=== PATIENT | female | born 1995 | race Caucasian/White ===

== ENCOUNTER 2019-10-05 07:30 | Outpatient (CLI) | payer BC ==
--- NOTE | 2019-10-05 09:19 | ULT ---
Obstetric sonogram HISTORY: evaluation. Second trimester gestation. FINDINGS: Single intrauterine gestation in transverse presentation. Cervix is closed and 5.4 cm. Grad e 0 placenta is anterior. No evidence of previa. Amniotic fluid is within normal limits. No gross intracranial abnormalities are evident. spine and kidneys are intact as visualized. Four-chamber heart shows motion at 155 bpm. Three-vessel cord shows a normal insertion. Measurements are as follows: Biparietal diameter 20 weeks 3 days. Head circumference 20 weeks 4 days. Abdominal circumference 20 weeks 2 days. Femur length 20 weeks 2 days. [place] 98 percentile. Estimated date of delivery based on today's sonogram 02/19/2020. IMPRESSION: Single intrauterine gestation. Somewhat large for previously assigned gestational age. Es timated gestational age based on today's sonogram 20 weeks 3 days.
== END 2019-10-05 07:31 | disposition home or self-care (01) ==
LOC: ULT 07:30 → BICULT 07:31
PROVIDERS: ATTEND Family Medicine
DX: Z34.02 Encounter for supervision of normal first pregnancy, second trimester (principal); Z3A.20 20 weeks gestation of pregnancy
CPT/HCPCS: 76805

== ENCOUNTER 2020-02-24 19:15 | Inpatient (IN) | payer BC, MEDICAID ==
[~2020-02-24 19:15] MED LIST: Lidocaine 2% MPF 10 ML AMP (For Epidural Use) ONE
[2020-02-24] MEDS ORDERED: hydrALAZINE 20 MG/ML VIAL SLOW IVP PRN (20:03)
[2020-02-24] MEDS ORDERED: Ibuprofen 800 MG TAB PO PRN (20:03)
[2020-02-24] MEDS ORDERED: Acetaminophen/Codeine 30-300mg Tablet PO PRN (20:03)
[2020-02-24] MEDS ORDERED: Misoprostol 200 MCG TAB PR PRN (20:03)
[2020-02-24] MEDS ORDERED: Promethazine HCl 25 MG/ML VIAL IM PRN (20:03)
[2020-02-24] MEDS ORDERED: HYDROcodone/Acetaminophen 5/325 mg Tablet PO PRN (20:03)
[2020-02-24] MEDS ORDERED: NS w/ Oxytocin 10 units 500 ML IV SCH ×2 (20:03)
[2020-02-24] MEDS ORDERED: Butorphanol Tartrate 1 MG/ML VIAL SLOW IVP PRN (20:03)
[2020-02-24] MEDS ORDERED: NS / Oxytocin 40 units/1000ml 1,000 ML IV PRN (20:03)
[2020-02-24] MEDS ORDERED: Lidocaine 1% (PF) 30 ML VIAL SC PRN (20:03)
[2020-02-24] MEDS ORDERED: Ondansetron PF 4 MG/2 ML Vial IVP PRN (20:03)
[2020-02-24] MEDS ORDERED: Acetaminophen 500 MG TAB PO PRN (20:03)
[2020-02-24 20:30] VITALS: BMI 34.3
[2020-02-24 20:42] LABS: Hemoglobin 10.6 g/dL (12.0-16.0); Mean Corpuscular HGB CONC 33.1 g/dL (32.0-36.0); Mean Corpuscular Hemoglobin 28.4 pg (27.0-31.0); Mean Platelet Volume 9.7 fL (7.4-10.4); Platelet Count 314 thou/uL (130-400); RBC Distribution Width 13.3 % (11.5-14.5); Red Blood Cell (RBC) Count 3.74 mill/uL (4.20-5.40); White Blood Cell (WBC) Count 11.3 thou/uL (4.8-10.8)
[2020-02-24] MEDS: Lactated Ringer's 1,000 ML IV SCH (20:49)
[2020-02-24 21:23] LABS: Syphilis Antibody Nonreactive (Nonreactive); Syphilis Antibody Index 0.05 S/CO (<1.00 Non-Reactive)
[2020-02-24] MEDS: Misoprostol 100 MCG TAB VAG SCH (21:25)
[2020-02-24 22:18] LABS: HBSAg Index 0.18 S/CO (0-0.99); Hep B Surf Ag Non-Reactive S/CO (NonReactive)
[2020-02-25] MEDS: Lactated Ringer's 1,000 ML IV SCH ×2 (02:30→17:29)
[2020-02-25] MEDS: Misoprostol 100 MCG TAB VAG SCH ×4 (04:21→17:29)
[2020-02-25] MEDS ORDERED: Fentanyl 4 mcg/Bup 0.1% Cadd 100 ML ONE ×2 (05:20→12:14)
[2020-02-25] MEDS ORDERED: Acetaminophen 325 MG TAB PO PRN (06:32)
[2020-02-25] MEDS ORDERED: diphenhydrAMINE 50 MG/ML VIAL IVP PRN (06:32)
[2020-02-25] MEDS ORDERED: Promethazine HCl 25 MG/ML VIAL IM PRN (06:32)
[2020-02-25] MEDS ORDERED: Ondansetron PF 4 MG/2 ML Vial IVP PRN ×2 (06:32→17:17)
[2020-02-25] MEDS ORDERED: Lactated Ringer's 500 ML IV PRN (06:32)
[2020-02-25] MEDS ORDERED: EPHEDRINE 25 MG/5 ML SYRINGE SLOW IVP PRN (06:32)
[2020-02-25] MEDS ORDERED: Naloxone HCl 0.4 mg/ml Vial IVP PRN ×2 (06:32)
[2020-02-25] MEDS ORDERED: Communication Order-Pharmacy FS SCH (06:45)
[2020-02-25] MEDS ORDERED: Fentanyl 4 mcg/Bupivacaine 0.1% Cassette 100 ML EPIDURAL SCH (06:45)
[2020-02-25] MEDS ORDERED: Benzocaine-Menthol 82.5 ML CAN TOP PRN (17:17)
[2020-02-25] MEDS ORDERED: NS / Oxytocin 40 units/1000ml 1,000 ML IV SCH (17:17)
[2020-02-25] MEDS ORDERED: Preparation H Ointment 28 GM TUBE PR PRN (17:17)
[2020-02-25] MEDS ORDERED: Lanolin Ointment 7 GM TUBE TOP PRN (17:17)
[2020-02-25] MEDS ORDERED: Milk Of Magnesia 30 ML UDCUP PO PRN (17:17)
[2020-02-25] MEDS ORDERED: Bisacodyl 10 MG SUPP PR PRN (17:17)
[2020-02-25] MEDS ORDERED: diphenhydrAMINE 25 MG CAP PO PRN (17:17)
[2020-02-25] MEDS ORDERED: hydrALAZINE 20 MG/ML VIAL SLOW IVP PRN (17:17)
[2020-02-25] MEDS: Ferrous Sulfate 325 MG TAB PO SCH (17:28)
[2020-02-25] MEDS ORDERED: Acetaminophen/Codeine 30-300mg Tablet PO PRN (18:18)
[2020-02-25] MEDS ORDERED: HYDROcodone/Acetaminophen 5/325 mg Tablet PO PRN (18:18)
[2020-02-25] MEDS: Ibuprofen 800 MG TAB PO SCH (21:59)
[2020-02-25] MEDS: Docusate Calcium (SURFAK) 240 MG CAP PO SCH (22:00)
[2020-02-26] MEDS: Ibuprofen 800 MG TAB PO SCH ×3 (05:35→21:44)
[2020-02-26] MEDS: Ferrous Sulfate 325 MG TAB PO SCH ×2 (06:58→18:32)
[2020-02-26] MEDS: Prenatal Vitamin 1 TAB PO SCH (08:55)
[2020-02-26] MEDS: Docusate Calcium (SURFAK) 240 MG CAP PO SCH ×2 (08:55→21:44)
[2020-02-27] MEDS: Ibuprofen 800 MG TAB PO SCH ×2 (05:54→13:29)
[2020-02-27] MEDS: Ferrous Sulfate 325 MG TAB PO SCH (08:45)
[2020-02-27] MEDS: Docusate Calcium (SURFAK) 240 MG CAP PO SCH (09:49)
[2020-02-27] MEDS: Prenatal Vitamin 1 TAB PO SCH (09:49)
[2020-02-27 09:57] VITALS: BP 131/68; TEMP 98.5
== END 2020-02-27 13:57 | disposition home or self-care (01) | DRG 807 ==
LOC: L&D 19:52 → 3SE 02-25 18:27
PROVIDERS: ADMIT Family Medicine; ATTEND Family Medicine
PROC: 10E0XZZ Delivery of Products of Conception, External Approach (ICD-10-PCS; principal; 2020-02-25)
PROC: 10907ZC Drainage of Amniotic Fluid, Therapeutic from Products of Conception, Via Natural or Artificial Opening (ICD-10-PCS; 2020-02-25)
DX: O48.0 Post-term pregnancy (principal); Z37.0 Single live birth; Z3A.40 40 weeks gestation of pregnancy; O70.1 Second degree perineal laceration during delivery; O69.81X0 Labor and delivery complicated by cord around neck, without compression, not applicable or unspecified
CPT/HCPCS: 36415; 51702; 85027; 86780; 86850; 86900; 86901; 87340; J0595; J2001; J2590